=== PATIENT | male | born 2000 | race American Indian/Alaskan Native ===

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

== ENCOUNTER 2018-01-15 17:37 | Emergency (ER) | payer BC ==
[2018-01-15 17:51] VITALS: BMI 24.7
--- NOTE | 2018-01-15 18:04 | ED PDOC ---
Arrival/HPI - General Chief Complaint: Abdominal Pain Time Seen by Provider: 01/15/18 17:58 Historian: Patient - History of Present Illness Narrative History of Present Illness (Text): 01/15/18 17:59 17 y/o male, no significant pmh, nkda, c/o gastritis pain for the past 3 days. Pt. stated that he has no pain now, been having indigestion for the past 3 days , admits been skipping meal and eat before sleeping, been eating and drinking well, no chest pain or shortness of breath, no night sweat, no rash, no numbness or tingling, have appointment to see the pmd tomorrow, last bowel movement this morning with normal color and consistency, no other medical or psychological complaints. Past Medical History - Provider Review Nursing Documentation Reviewed: Yes - Past History Past History: No Previous - Infectious Disease Hx of Infectious Diseases: None - Tetanus Immunization Tetanus Immunization: Up to Date - Cardiac Hx Cardiac Disorders: No - Pulmonary Hx Respiratory Disorders: Yes Hx Asthma: Yes - Neurological Hx Neurological Disorder: No - HEENT Hx HEENT Disorder: No - Renal Hx Renal Disorder: No - Endocrine/Metabolic Hx Endocrine Disorders: No - Hematological/Oncological Hx Blood Disorders: No - Integumentary Hx Dermatological Disorder: No - Musculoskeletal/Rheumatological Hx Musculoskeletal Disorders: No - Gastrointestinal Hx Gastrointestinal Disorders: No - Genitourinary/Gynecological Hx Genitourinary Disorders: No - Psychiatric Hx Psychophysiologic Disorder: No Hx Substance Use: No - Past Surgical History Past Surgical History: No Previous - Suicidal Assessment Feels Threatened In Home Enviroment: No Family/Social History - Physician Review Nursing Documentation Reviewed: Yes Family/Social History: Unknown Family HX Smoking Status: Never Smoked Hx Alcohol Use: No Hx Substance Use: No Hx Substance Use Treatment: No Allergies/Home Meds Allergies/Adverse Reactions: Allergies No Known Allergies Allergy (Verified 01/15/18 17:53) Review of Systems - Review of Systems Constitutional: absent: Fatigue, Fevers Eyes: absent: Vision Changes ENT: absent: Hearing Changes Respiratory: absent: SOB, Cough Cardiovascular: absent: Chest Pain Gastrointestinal: absent: Abdominal Pain, Nausea, Vomiting Musculoskeletal: absent: Arthralgias, Back Pain Skin: absent: Rash, Pruritis Neurological: absent: Headache, Dizziness Psychiatric: absent: Anxiety, Depression, Suicidal Ideation Physical Exam Vital Signs Reviewed: Yes Vital Signs Temp Pulse Resp BP Pulse Ox 08/27/18 17:52 98.1 F 85 17 123/79 98 01/15/18 17:51 98.1 F 85 17 123/79 98 Temperature: Afebrile Blood Pressure: Normal Pulse: Regular Respiratory Rate: Normal Appearance: Positive for: Well-Appearing, Non-Toxic, Comfortable Pain Distress: None Mental Status: Positive for: Alert and Oriented X 3 - Systems Exam Head: Present: Atraumatic, Normocephalic Pupils: Present: PERRL Extroacular Muscles: Present: EOMI Conjunctiva: Present: Normal Mouth: Present: Moist Mucous Membranes Neck: Present: Normal Range of Motion Respiratory/Chest: Present: Clear to Auscultation, Good Air Exchange. No: Respiratory Distress, Accessory Muscle Use Cardiovascular: Present: Regular Rate and Rhythm, Normal S1, S2. No: Murmurs Abdomen: Present: Tenderness (mild epigastric tenderness), Other (negative nicholas signs, negative mcburney point tenderness, negative rovsign signs, no cva tenderness). No: Distention, Peritoneal Signs, Rebound, Guarding Back: Present: Normal Inspection Upper Extremity: Present: Normal Inspection. No: Cyanosis, Edema Lower Extremity: Present: Normal Inspection. No: Edema Neurological: Present: GCS=15, CN II-XII Intact, Speech Normal, Motor Func Grossly Intact, Memory Normal Skin: Present: Warm, Dry, Normal Color. No: Rashes Psychiatric: Present: Alert, Oriented x 3, Normal Insight, Normal Concentration Medical Decision Making ED Course and Treatment: 01/15/18 18:19 -Pt. is asymptomatic at this point, base on the HPI and physical exam, this is likely gastritis, scheduled to see the pmd tomorrow, will need out patient h.pylori test which I explained to the patient and would refer him to see GI as well. Pt. refused labs/radiology study at this time as he would see his own pmd tomorrow and asymptomatic. -Discharge home with pepcid, avoid spicy/fried/grilled food drink, avoid carbonated drinks, follow up with your own pmd and GI within 2 days, return to the ER for any new or worsening signs or symptoms. - PA / DUMB WAITER OPERATOR / Resident Statement MD/DO has reviewed & agrees with the documentation as recorded. Disposition/Present on Arrival - Present on Arrival Any Indicators Present on Arrival: No History of DVT/PE: No History of Uncontrolled Diabetes: No Urinary Catheter: No History of Decub. Ulcer: No History Surgical Site Infection Following: None - Disposition Have Diagnosis and Disposition been Completed?: Yes Diagnosis: Gastritis Disposition: HOME/ ROUTINE Disposition Time: 18:22 Patient Plan: Discharge Condition: GOOD Additional Instructions: -Discharge home with pepcid, avoid spicy/fried/grilled food drink, avoid carbonated drinks, follow up with your own pmd and GI within 2 days, return to the ER for any new or worsening signs or symptoms. Prescriptions: Famotidine [Pepcid] 20 mg PO BID #20 tab Referrals: Jimmie Raza MD [Staff Provider] - Follow up with primary Forms: [facility] (Belarusian), WORK NOTE
[2018-01-15 23:41] VITALS: BP 120/73; PULSE 72; RESP 18; TEMP 98.2; O2SAT 100
== END 2018-01-15 18:52 | disposition home or self-care (01) ==
LOC: ED 17:37
DX: K29.70 Gastritis, unspecified, without bleeding (principal)